=== PATIENT | female | born 1990 | race Caucasian/White ===

== ENCOUNTER 2018-12-27 18:48 | Emergency (ER) | payer MEDICAID ==
--- NOTE | 2018-12-27 19:12 | EDM.PDOC ---
ED HPI GENERAL MEDICAL PROBLEM - General Chief Complaint: Upper Extremity Injury/Pain Stated Complaint: RIGHT HAND INJURY Time Seen by Provider: 12/27/18 19:12 Source of Information: Reports: Patient - History of Present Illness INITIAL COMMENTS - FREE TEXT/NARRATIVE: HISTORY AND PHYSICAL: History of present illness: [Patient fell on outstretched hand this morning complains of right hand pain no head injury or loss of consciousness no fever nausea vomiting chills sweats pain is 5 out of 10 with use of the hand 0 out of 10 without use, no open lesion or bruising no redness warmth or open lesion or exudates for culture, unaffected above the wrist entirely limb neurovascularly intact, there is tenderness in the snuffbox ] Review of systems: As per history of present illness and below otherwise all systems reviewed and negative. Past medical history: As per history of present illness and as reviewed below otherwise noncontributory. Surgical history: As per history of present illness and as reviewed below otherwise noncontributory. Social history: No reported history of drug or alcohol abuse. Family history: As per history of present illness and as reviewed below otherwise noncontributory. Physical exam: HEENT: Atraumatic, normocephalic, pupils reactive, negative for conjunctival pallor or scleral icterus, mucous membranes moist, throat clear, neck supple, nontender, trachea midline. Lungs: Clear to auscultation, breath sounds equal bilaterally, chest nontender. Heart: S1S2, regular, negative for clicks, rubs, or JVD. Abdomen: Soft, nondistended, nontender. Negative for masses or hepatosplenomegaly. Negative for costovertebral tenderness. Pelvis: Stable nontender. Genitourinary: Deferred. Rectal: Deferred. Extremities: Atraumatic, negative for cords or calf pain. Neurovascular unremarkable. Right upper extremity as per history of present illness Neuro: Awake, alert, oriented. Cranial nerves II through XII unremarkable. Cerebellum unremarkable. Motor and sensory unremarkable throughout. Exam nonfocal. Diagnostics: [Right hand 3 views ]Thumb spica Therapeutics: Rest ice ibuprofen Follow-up with orthopedist[] Impression: [Right hand injury] Definitive disposition and diagnosis as appropriate pending reevaluation and review of above. right arm Pain Score (Numeric/FACES): 7 - Related Data Allergies Allergy/AdvReac Type Severity Reaction Status Date / Time Penicillins Allergy Other Verified 12/27/18 19:05 Home Meds: Home Meds . 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: Neurological History: Reports: None Psychiatric History: Reports: None Endocrine/Metabolic History: Reports: None Hematologic History: Reports: None Oncologic (Cancer) History: Reports: None Dermatologic History: Reports: None - Infectious Disease History Infectious Disease History: Reports: Chicken Pox - Past Surgical History GI Surgical History: Reports: Cholecystectomy Female Surgical History: Reports: Section Other Musculoskeletal Surgeries/Procedures:: Left knee surgery Social & Family History - Family History Family Medical History: Noncontributory - Tobacco Use Smoking Status *Q: Current Every Day Smoker Years of Tobacco use: 13 Packs/Tins Daily: 1 - Recreational Drug Use Recreational Drug Use: No Review of Systems - Review of Systems Review Of Systems: See Below ED EXAM, GENERAL - Physical Exam Exam: See Below Course - Vital Signs Last Recorded V/S: Last Vital Signs Temp 97.8 F 12/27/18 19:06 Pulse 96 12/27/18 19:06 Resp 18 12/27/18 19:06 BP 135/78 12/27/18 19:06 Pulse Ox 97 12/27/18 19:06 - Orders/Labs/Meds Orders: Active Orders 24 hr Category Date Time Status Hand Comp Min 3V Rt [CR] Stat Exams 12/27/18 19:12 Taken Departure - Departure Time of Disposition: 19:58 Disposition: Home, Self-Care 01 Condition: Good Clinical Impression: Injury of right hand - Discharge Information Referrals: Mari Wu MD [Primary Care Provider] - Forms: ED Department Discharge Additional Instructions: Thumb spica splint Rest ice ibuprofen Follow-up with orthopedist, call phone number below to schedule appropriate follow-up [facility] [address], [address] [place] [phone] my orthopedic The following information is given to patients seen in the emergency department who are being discharged to home. This information is to outline your options for follow-up care. We provide all patients seen in our emergency department with a follow-up referral. The need for follow-up, as well as the timing and circumstances, are variable depending upon the specifics of your emergency department visit. If you don't have a primary care physician on staff, we will provide you with a referral. We always advise you to contact your personal physician following an emergency department visit to inform them of the circumstance of the visit and for follow-up with them and/or the need for any referrals to a consulting specialist. The emergency department will also refer you to a specialist when appropriate. This referral assures that you have the opportunity for follow-up care with a specialist. All of these measure are taken in an effort to provide you with optimal care, which includes your follow-up. Under all circumstances we always encourage you to contact your private physician who remains a resource for coordinating your care. When calling for follow-up care, please make the office aware that this follow-up is from your recent emergency room visit. If for any reason you are refused follow-up, please contact the [facility] emergency department at and asked to speak to the emergency department charge nurse. - My Orders Last 24 Hours: My Active Orders 12/27/18 19:12 Hand Comp Min 3V Rt [CR] Stat - Assessment/Plan Last 24 Hours: My Active Orders 12/27/18 19:12 Hand Comp Min 3V Rt [CR] Stat
--- NOTE | 2018-12-27 20:25 | CR ---
INDICATION: Fall, hand pain. TECHNIQUE: Xray right hand, 3 views. COMPARISON: None available FINDINGS: There is mild soft tissue swelling dorsally. The alignment is normal. Negative for acute fracture or dislocation. No osseous abnormality is seen. No radiopaque foreign body is visualized. IMPRESSION: Mild soft tissue swelling dorsally. Negative for acute fracture or dislocation. Dictated by Elyssa Munoz MD @ 12/27/2018 8:24:56 PM Dictated by: Elyssa Munoz MD @ 12/27/2018 20:25:13 (Electronically Signed)
== END 2018-12-27 20:12 | disposition home or self-care (01) ==
LOC: MW.ED 18:48
DX: S69.91XA Unspecified injury of right wrist, hand and finger(s), initial encounter (principal); F17.210 Nicotine dependence, cigarettes, uncomplicated; Z88.0 Allergy status to penicillin; Z90.49 Acquired absence of other specified parts of digestive tract; W19.XXXA Unspecified fall, initial encounter
CPT/HCPCS: 73130-26-RT; 73130-RT; 99283-25

== ENCOUNTER 2020-02-24 17:15 | Emergency (ER) | payer MEDICAID, OTHER ==
--- NOTE | 2020-02-24 18:15 | CR ---
INDICATION: Chest pain. Shortness breath. COMPARISON: none TECHNIQUE: Two view chest. FINDINGS: The lungs are clear. There is no evidence of pneumothorax. The heart, mediastinum and pulmonary vessels are of normal size. There is no evidence of pleural fluid. IMPRESSION: Negative chest. Dictated by Ben Mcdonnell MD @ Feb 24 2020 6:12PM Signed by Dr. Ben Mcdonnell @ Feb 24 2020 6:13PM
--- NOTE | 2020-02-24 18:18 | EDM.PDOC ---
ED HPI GENERAL MEDICAL PROBLEM - General Chief Complaint: Fever Stated Complaint: FEVER, CONGESTION Time Seen by Provider: 02/24/20 17:16 Source of Information: Reports: Patient History Limitations: Reports: No Limitations - History of Present Illness INITIAL COMMENTS - FREE TEXT/NARRATIVE: HISTORY AND PHYSICAL: History of present illness: Patient is a 29-year-old female who presents to the emergency room with complaints of diarrhea, cough, fever, body aches, sore throat and sinus congestion since . She states that when she does get into a "coughing attack" she does find it hard to take in deep breaths. Patient denies any change in vision, syncope or near syncope. Denies any chest pain, back pain, abdominal pain, nausea, vomiting, constipation or dysuria. Has not noted any blood in urine or stool. No concerns of today. Patient has been eating and drinking appropriately. Review of systems: As per history of present illness and below otherwise all systems reviewed and negative. Past medical history: As per history of present illness and as reviewed below otherwise noncontributory. Surgical history: As per history of present illness and as reviewed below otherwise noncontributory. Social history: See social history for further information Family history: As per history of present illness and as reviewed below otherwise noncontrib utory. Physical exam: General: Well developed and well nourished. Alert and orientated x 3. Nontoxic in appearance and in no acute distress. Vital signs are stable and have been reviewed by me. Nursing notes were reviewed. HEENT: Atraumatic, normocephalic, pupils equal and reactive bilaterally, negative for conjunctival pallor or scleral icterus, mucous membranes moist, TMs normal bilaterally, throat clear, neck supple, nontender, trachea midline. No drooling or trismus noted. No meningeal signs. No hot potato voice noted. Lungs: Clear to auscultation, breath sounds equal bilaterally, chest nontender. Normal work of breathing, no accessory muscles used. Heart: S1S2, regular rate and rhythm without overt murmur Abdomen: Soft, nondistended, nontender. Negative for masses or hepatosplenome christa. Negative for costovertebral tenderness. Skin: Intact, warm, dry. No lesions or rashes noted. Hematologic: No petechiae or purpra. Mucosa appropriate color and normal nail bed color and refill. Extremities: Atraumatic, moves all extremities per self without difficulty or deficits, negative for cords or calf pain. Neurovascular unremarkable. Neuro: Awake, alert, oriented. Cranial nerves II through XII unremarkable. Cerebellum unremarkable. Motor and sensory unremarkable throughout. Exam nonfocal. Psychiatric: Mood and affect are appropriate. Normal thought process. Answering questions appropriately. Notes: Chest x-ray is unremarkable. Coronavirus screening is negative. I have spoken with the patient/caregiver and discussed today's findings, in addition to providing specific details for plan of care. Reassessment at the time of disposition demonstrates that the patient is in no acute distress. The patient has remained stable throughout the entire ED visit and is without objective evidence for acute process requiring urgent intervention or hospitalization. The patient is stable for discharge, counseling was provided as , and we discussed in great detail signs and symptoms that would prompt them to return to the Emergency Department. Medication, follow up and supportive care measures were reviewed and discussed. Voices understanding and is agreeable to plan of care. Denies any further questions or concerns at this time. Diagnostics: COVID, CXR Therapeutics: None Prescription: Zpak and Prednisone Impression: Bronchitis Plan: 1. Today your chest x-ray and coronavirus tests are normal. I am going to treat you with antibiotics and steroids for bronchitis. 2. You can alternate Tylenol and ibuprofen as needed for fever and pain management 3. We encourage you to follow up with your primary care provider and/or recommended specialist in the next few days for re-evaluation and further care/management. If your symptoms should worsen, new symptoms develop or any of the signs and symptoms we discussed should arise please return to the emergency room or call 911 (if needed). Definitive disposition and diagnosis as appropriate pending reevaluation and review of above. 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: Musculoskeletal History: Reports: None Neurological History: Reports: None Psychiatric History: Reports: Anxiety, Depression, PTSD Endocrine/Metabolic History: Reports: Diabetes, Type II Hematologic History: Reports: None Oncologic (Cancer) History: Reports: None Dermatologic History: Reports: None - Infectious Disease History Infectious Disease History: Reports: Chicken Pox - Past Surgical History GI Surgical History: Reports: Cholecystectomy Female Surgical History: Reports: Section, Tubal Ligation Endocrine Surgical History: Reports: None Other Musculoskeletal Surgeries/Procedures:: Left knee surgery Social & Family History - Family History Family Medical History: Noncontributory - Tobacco Use Smoking Status *Q: Never Smoker Second Hand Smoke Exposure: No - Recreational Drug Use Recreational Drug Use: No ED ROS GENERAL - Review of Systems Review Of Systems: Comprehensive ROS is negative, except as noted in HPI. ED EXAM, GENERAL - Physical Exam Exam: See Below (See dictation) Course - Vital Signs Last Recorded V/S: Last Vital Signs Temp 99.4 F 02/24/20 17:24 Pulse 109 H 02/24/20 17:24 Resp 20 02/24/20 17:24 BP 134/84 02/24/20 17:24 Pulse Ox 96 02/24/20 17:24 - Orders/Labs/Meds Labs: Laboratory Tests 02/24/20 Range/Units 18:10 COVID-19 (SUB[facility]) NEGATIVE (NEGATIVE) Departure - Departure Time of Disposition: 18:43 Disposition: Home, Self-Care 01 Clinical Impression: Bronchitis - Discharge Information Prescriptions: predniSONE [Prednisone] 40 mg PO DAILY 4 Days #8 tablet Azithromycin [Zithromax] 1 dose PO DAILY 5 Days #6 tab Instructions: Upper Respiratory Infection, Adult, [id number] Referrals: PCP,None [Primary Care Provider] - Forms: ED Department Discharge Additional Instructions: The following information is given to patients seen in the emergency department who are being discharged to home. This information is to outline your options for follow-up care. We provide all patients seen in our emergency department with a follow-up referral. The need for follow-up, as well as the timing and circumstances, are variable depending upon the specifics of your emergency department visit. If you don't have a primary care physician on staff, we will provide you with a referral. We always advise you to contact your personal physician following an emergency department visit to inform them of the circumstance of the visit and for follow-up with them and/or the need for any referrals to a consulting specialist. The emergency department will also refer you to a specialist when appropriate. This referral assures that you have the opportunity for follow-up care with a specialist. All of these measure are taken in an effort to provide you with optimal care, which includes your follow-up. Under all circumstances we always encourage you to contact your private physician who remains a resource for coordinating your care. When calling for follow-up care, please make the office aware that this follow-up is from your recent emergency room visit. If for any reason you are refused follow-up, please contact the [facility] Emergency Department at and asked to speak to the emergency department charge nurse. [facility] [address] [place] [id number] [place] [address] Thank you for choosing the [facility] emergency department in [place] for your medical needs today. It was a pleasure caring for you. Today you were seen in the emergency department for upper respiratory symptoms. 1. Today your chest x-ray and coronavirus tests are normal. I am going to treat you with antibiotics and steroids for bronchitis. 2. You can alternate Tylenol and ibuprofen as needed for fever and pain management 3. We encourage you to follow up with your primary care provider and/or recommended specialist in the next few days for re-evaluation and further care/management. If your symptoms should worsen, new symptoms develop or any of the signs and symptoms we discussed should arise please return to the emergency room or call 911 (if needed). Sepsis Event Note (ED) - Evaluation Sepsis Screening Result: No Definite Risk - Focused Exam Vital Signs: Vital Signs Temp Pulse Resp BP Pulse Ox 02/24/20 17:24 99.4 F 109 H 20 134/84 96
== END 2020-02-24 18:56 | disposition home or self-care (01) ==
LOC: MW.ED 17:15
DX: J40 Bronchitis, not specified as acute or chronic (principal); F41.9 Anxiety disorder, unspecified; F32.9 Major depressive disorder, single episode, unspecified; E11.9 Type 2 diabetes mellitus without complications; Z79.84 Long term (current) use of oral hypoglycemic drugs; Z79.899 Other long term (current) drug therapy; Z20.828 Contact with and (suspected) exposure to other viral communicable diseases
CPT/HCPCS: 71046; 71046-26; 99282; 99284-25; U0002

== ENCOUNTER 2020-12-26 07:36 | Emergency (ER) | payer SELFPAY ==
[2020-12-26] MEDS ORDERED: Metoclopramide 10 MG/2 ML SDV IVPUSH ONE (07:45)
[2020-12-26] MEDS ORDERED: diphenhydrAMINE 50 MG/ML SDV IVPUSH ONE (07:46)
[2020-12-26] MEDS ORDERED: Ketorolac 15 MG/ML SDV IVPUSH ONE (07:47)
[2020-12-26 08:21] LABS: BLOOD UREA NITROGEN,BUN 11 mg/dL (7.0-18.0); CARBON DIOXIDE,CO2 24.4 mmol/L (21.0-32.0); CHLORIDE,CL 104 mmol/L (98-107); GLUCOSE RANDOM 114 mg/dL (74-106); SODIUM,NA 140 mmol/L (136-145)
--- NOTE | 2020-12-26 08:58 | EDM.PDOC ---
ED HPI GENERAL MEDICAL PROBLEM - General Chief Complaint: Neuro Symptoms/Deficits Stated Complaint: MIGRAINES; RIGHT SIDE OF FACE DROOPING Time Seen by Provider: 12/26/20 07:50 - History of Present Illness INITIAL COMMENTS - FREE TEXT/NARRATIVE: History of present illness: [] Patient has migraine for 5 days. It is just like her usual migraine with diffuse headache, nausea, and photophobia. He took her usual medicine and did not improve. She usually does not have any breakthrough the last 5 days and requires emergency department visit.. 3 days ago she got left-sided facial weakness. It included the whole face including her eyebrow and her left nasolacrimal fold. She could not smile symmetrically. Patient had no other symptoms. The and the patient agree that the left-sided facial droop has improved quite a bit. The patient is a smoker and her mother of a heart attack at the age of 47. Review of systems: As per history of present illness and below otherwise all systems reviewed and negative. Past medical history: As per history of present illness and as reviewed below otherwise noncontributory. Surgical history: As per history of present illness and as reviewed below otherwise noncontri butory. Social history: No reported history of drug or alcohol abuse. Family history: As per history of present illness and as reviewed below otherwise noncontributory. Physical exam: Constitutional - well developed, well-nourished and in no acute distress HEENT -TMs normal normocephalic, no evidence of trauma - external nose and mouth normal - no mass in neck and no JVD - mucosae moist EYES - full EOM, PERRL, no icterus - no evidence of inflammation, injection, or drainage Respiratory - no respiratory distress, equal bilateral expansion, lungs clear to auscultation and no abnormal lung sounds Cardiovascular - Regular Rhythm with S1 and S2 appreciated and no murmur, gallop or rub. GI - abdomen soft without distension or organomegaly - normal bowel sounds - no guard or rebound Musculoskeletal no gross deformity of long bones or joints - no tenderness, swelling or edema Neurologic - Alert and oriented times four - CN II-XII grossly intact except minimal depression of the left nasolacrimal fold minimal decreased movement of the left eyebrow.- motor sensory and coordination symmetrically normal Psychiatric - appropriate mood and affect with normal thought content Hematologic - No petechiae or purpura - mucosa appropriate color and sclera not pale - normal nail bed color and refill Integument - no rash or evidence of trauma - normal turgor Diagnostics: [] Therapeutics: [] Impression: [] Plan: [] Definitive disposition and diagnosis as appropriate pending reevaluation and review of above. Headache Pain Score (Numeric/FACES): 5 - Related Data Allergies Allergy/AdvReac Type Severity Reaction Status Date / Time Penicillins Allergy Other Verified 12/26/20 07:46 Home Meds: Home Meds . 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: Musculoskeletal History: Reports: None Neurological History: Reports: None Psychiatric History: Reports: Anxiety, Depression, PTSD Endocrine/Metabolic History: Reports: Diabetes, Type II Hematologic History: Reports: None Oncologic (Cancer) History: Reports: None Dermatologic History: Reports: None - Infectious Disease History Infectious Disease History: Reports: Chicken Pox - Past Surgical History GI Surgical History: Reports: Cholecystectomy Female Surgical History: Reports: Section, Tubal Ligation Endocrine Surgical History: Reports: None Other Musculoskeletal Surgeries/Procedures:: Left knee surgery Social & Family History - Family History Family Medical History: No Pertinent Family History - Tobacco Use Tobacco Use Status *Q: Current Every Day Tobacco User Years of Tobacco use: 12 Packs/Tins Daily: 0.3 - Caffeine Use Caffeine Use: Reports: None - Recreational Drug Use Recreational Drug Use: No ED ROS GENERAL - Review of Systems Review Of Systems: Comprehensive ROS is negative, except as noted in HPI. ED EXAM, GENERAL - Physical Exam Exam: See Below Free Text/Narrative:: Physical exam is in the HPI Course - Vital Signs Last Recorded V/S: Last Vital Signs Temp 36.6 C 12/26/20 07:47 Pulse 91 12/26/20 07:47 Resp 16 12/26/20 07:47 BP 128/87 12/26/20 07:47 Pulse Ox 95 12/26/20 07:47 - Orders/Labs/Meds Orders: Active Orders 24 hr Category Date Time Status Peripheral IV Care [RC] . DIRECTED Care 12/26/20 07:45 Active Labs: Laboratory Tests 12/26/20 12/26/20 Range/Units 07:54 07:54 WBC 6.04 (4.0-11.0) K/uL RBC 4.83 (4.30-5.90) M/uL Hgb 13.6 (12.0-16.0) g/dL Hct 40.9 (36.0-46.0) % MCV 84.7 (80.0-98.0) fL MCH 28.2 (27.0-32.0) pg MCHC 33.3 (31.0-37.0) g/dL RDW Std Deviation 40.3 (28.0-62.0) fl RDW Coeff of Cosme 13 (11.0-15.0) % Plt Count 239 (150-400) K/uL MPV 9.90 (7.40-12.00) fL Neut % (Auto) 64.5 (48.0-80.0) % Lymph % (Auto) 28.5 (16.0-40.0) % [place] % (Auto) 6.0 (0.0-15.0) % Eos % (Auto) 0.8 (0.0-7.0) % Baso % (Auto) 0.2 (0.0-1.5) % Neut # (Auto) 3.9 (1.4-5.7) K/uL Lymph # (Auto) 1.7 (0.6-2.4) K/uL [place] # (Auto) 0.4 (0.0-0.8) K/uL Eos # (Auto) 0.1 (0.0-0.7) K/uL Baso # (Auto) 0.0 (0.0-0.1) K/uL Nucleated RBC % 0.0 /100WBC Nucleated RBCs # 0 K/uL Sodium 140 (136-145) mmol/L Potassium 4.0 (3.5-5.1) mmol/L Chloride 104 (98-107) mmol/L Carbon Dioxide 24.4 (21.0-32.0) mmol/L BUN 11 (7.0-18.0) mg/dL Creatinine 0.8 (0.6-1.0) mg/dL Est Cr Clr Drug Dosing 82.06 mL/min Estimated GFR (MDRD) > 60.0 ml/min Glucose 114 H (74-106) mg/dL Calcium 8.6 (8.5-10.1) mg/dL Meds: Medications Discontinued Medications Generic Name Dose Route Start Last Admin Trade Name Giovanny PRN Reason Stop Dose Admin Diphenhydramine HCl 50 mg 12/26/20 07:46 12/26/20 08:10 Diphenhydramine 50 Mg/Ml Sdv IVPUSH 12/26/20 07:47 50 mg ONETIME ONE Administration Ketorolac Tromethamine 15 mg 12/26/20 07:47 12/26/20 08:10 Ketorolac 15 Mg/Ml Sdv IVPUSH 12/26/20 07:48 15 mg DAILY ONE Administration Metoclopramide HCl 10 mg 12/26/20 07:45 12/26/20 08:10 Metoclopramide 10 Mg/2 Ml Sdv IVPUSH 12/26/20 07:46 10 mg ONETIME ONE Administration Departure - Departure Time of Disposition: 09:00 Disposition: Home, Self-Care 01 Clinical Impression: Norris's palsy, Migraine - Discharge Information Instructions: Norris Palsy, Adult, Migraine Headache, [id number] Referrals: Mari Wu MD [Primary Care Provider] - Forms: ED Department Discharge Additional Instructions: The following information is given to patients seen in the emergency department who are being discharged to home. This information is to outline your options for follow-up care. We provide all patients seen in our emergency department with a follow-up referral. The need for follow-up, as well as the timing and circumstances, are variable depending upon the specifics of your emergency department visit. If you don't have a primary care physician on staff, we will provide you with a referral. We always advise you to contact your personal physician following an emergency department visit to inform them of the circu mstance of the visit and for follow-up with them and/or the need for any referrals to a consulting specialist. The emergency department will also refer you to a specialist when appropriate. This referral assures that you have the opportunity for follow-up care with a specialist. All of these measure are taken in an effort to provide you with optimal care, which includes your follow-up. Under all circumstances we always encourage you to contact your private physician who remains a resource for coordinating your care. When calling for follow-up care, please make the office aware that this follow-up is from your recent emergency room visit. If for any reason you are refused follow-up, please contact the [facility] Emergency Department at and asked to speak to the emergency department charge nurse. [facility] [address] [place] [address] [facility] [address] [place] [address] Please return to the Emergency Room if your symptoms worsen or change. Take medications as prescribed and follow up with your Primary Care Provider. If you do not have one, we have listed the phone numbers for the local clinics. Sepsis Event Note (ED) - Evaluation Sepsis Screening Result: No Definite Risk - Focused Exam Vital Signs: Vital Signs Temp Pulse Resp BP Pulse Ox 12/26/20 07:47 36.6 C 91 16 128/87 95 - My Orders Last 24 Hours: My Active Orders 12/26/20 07:45 Peripheral IV Care [RC] . DIRECTED - Assessment/Plan Last 24 Hours: My Active Orders 12/26/20 07:45 Peripheral IV Care [RC] . DIRECTED
== END 2020-12-26 09:02 | disposition home or self-care (01) ==
LOC: MW.ED 07:36
DX: G43.909 Migraine, unspecified, not intractable, without status migrainosus (principal); G51.0 Bell's palsy; E11.9 Type 2 diabetes mellitus without complications; F17.210 Nicotine dependence, cigarettes, uncomplicated; Z88.0 Allergy status to penicillin
CPT/HCPCS: 80048; 85025; 96374; 96375; 99284; J1200; J1885; J2765

== ENCOUNTER 2022-06-21 10:00 | Emergency (ER) | payer MEDICAID ==
[2022-06-21] MEDS ORDERED: Benzocaine 20% Topical Spray UD MUCMEM ONE (10:34)
[2022-06-21] MEDS ORDERED: Lidocaine 2% Viscous Solution 15 ML UD PO ONE (10:34)
== END 2022-06-21 10:44 | disposition home or self-care (01) ==
LOC: MW.ED 10:00
DX: K04.7 Periapical abscess without sinus (principal); E11.9 Type 2 diabetes mellitus without complications; Z88.0 Allergy status to penicillin; Z79.899 Other long term (current) drug therapy; Z90.49 Acquired absence of other specified parts of digestive tract
CPT/HCPCS: 99282; A9270